=== PATIENT | female | born 1960 | race African-American/Black ===

== ENCOUNTER 2017-06-10 14:12 | Inpatient (IN) | payer MEDICARE ==
[2017-06-10] MEDS ORDERED: ISOVUE-370 76%-LOCM 1 ML ONE (14:16)
--- NOTE | 2017-06-10 14:51 | RAD ---
RADIOGRAPH CHEST 1 VIEW: HISTORY: A 57-year-old female with cough. FINDINGS: The thoracic aorta is tortuous and ectatic. There is no evidence of air space density, pneumothorax, or pulmonary edema. The lateral costophrenic angles are sharp. IMPRESSION: 1) No acute pulmonary findings. 2) Ectasia of thoracic aorta. jn [] POS: C
--- NOTE | 2017-06-10 15:12 | CT ---
BRAIN CT WITHOUT IV CONTRAST: HISTORY: A 57-year-old female with left-sided arm and leg weakness and tingling which began approximately 2-1/ 2 hours ago. COMPARISON: 02/22/15. FINDINGS: Mild atrophy and chronic white matter ischemic changes. Tiny punctate lacunar infarct focus in the r ight caudate. No mass or acute hemorrhage. No CT evidence for significant acute infarct. The patient gives a history of being allergic to contrast media, so she will receive the short prep a nd have a CTA head with perfusion after the premedication. IMPRESSION: No mass or bleed or other acute process. Tiny old right caudate nucleus lacunar infarct. I discussed with Dr. Wyatt at 3:05 p.m. CODE CR POS: NOHELIA
[2017-06-10] MEDS ORDERED: diphenhydrAMINE 50 MG/ML VIAL ONE (15:44)
[2017-06-10] MEDS ORDERED: Famotidine/PF 20 mg/2ml Vial ONE (15:44)
[2017-06-10] MEDS ORDERED: methylPREDNISolone Sod Succ/PF 125 MG/2 ML VIAL ONE (15:44)
[2017-06-10] MEDS ORDERED: Water For Inject, Bacteriostat 30 ML ONE (15:45)
[2017-06-10 15:50] LABS: Hemoglobin 11.7 g/dL (12.0-16.0); Mean Corpuscular HGB CONC 33.2 g/dL (32.0-36.0); Mean Corpuscular Volume 87.4 fl (81.0-99.0); Mean Platelet Volume 7.7 fL (7.4-10.4); Platelet Count 178 thou/uL (130-400); RBC Distribution Width 12.8 % (11.5-14.5); Red Blood Cell (RBC) Count 4.02 mill/uL (4.20-5.40); White Blood Cell (WBC) Count 8.2 thou/uL (4.8-10.8)
[2017-06-10 15:54] LABS: INR-International Normal Ratio 1.1; Prothrombin Time 14.2 SEC (12.0-14.7)
[2017-06-10 16:10] LABS: ALT (SGPT) 8 U/L (8-55); AST (SGOT) 13 U/L (5-34); Albumin 3.7 g/dL (3.5-5.0); Alkaline Phosphatase 61 U/L (40-150); Anion Gap 13 mmol/L (10-20); BUN (Urea Nitrogen) 27 mg/dL (9.8-20.1); Band 6 % (5-11); Bilirubin, Total 0.3 mg/dL (0.2-1.2); Calc. Creatinine Clearance 0 mL/min (70-130); Calcium 8.9 mg/dL (7.8-10.44); Carbon Dioxide 27 mmol/L (22-29); Chloride 100 mmol/L (98-107); Eosinophils 1 % (0-10); Estimated GFR-MDRD 22; Globulin 3.6 g/dL (2.4-3.5); Glucose 100 mg/dL (70-105); Large Platelets SLIGHT; Lymphocytes 32 % (21-51); MDiff Complete? YES; Monocytes 14 % (0-10); Neutrophil 43 % (42-75); Ovalocytes SLIGHT = 2-5 cells (100X) (0-1/hpf); PLT Morphology Comment Appears Adequate; Polychromasia SLIGHT = 2-3 cells (100X) (0-2/hpf); Potassium 3.9 mmol/L (3.5-5.1); Protein, Total 7.3 g/dL (6.0-8.3); Reactive Lymphocytes 3 % (0-10); Sodium 136 mmol/L (136-145)
[2017-06-10 16:14] LABS: CKMB 0.7 ng/mL (0-6.6); Troponin I 0.014 ng/mL (< 0.028)
--- NOTE | 2017-06-10 17:36 | CT ---
CTA OF THE HEAD CTA OF THE NECK CT PERFUSION EVALUATION WITH IV CONTRAST 06/10/17 TECHNIQUE: Multiple CTA images were obtained in the head and neck utilizing IV contrast with 3D reformatted imag ing. CT perfusion study was also performed of the brain. Comparisons are made with noncontrast CT of the brain performed on 06/10/17 at 3 p.m. FINDINGS: CT PERFUSION STUDY: The mean transit time is within normal limits and symmetric. The blood flow and b lood volume is symmetric. CTA examination demonstrates no hemodynamically significant stenosis, occlusion or aneurysmal formati on involving the right internal carotid artery. There is some moderate atherosclerotic irregularity suggested at the region of the left petrous segme nt of the ICA. The remaining course appears patent. The MCAs, ACAs, and washer machine appear patent. The basilar artery and vertebral arteries appear patent throu ghout their course. There is a 9 mm hypodensity in the superior pole of the left thyroid gland. No pathologically enlarged lymph nodes are evident within the neck. There is shotty appearing lymph n odes within the upper neck. Small suspected lymph node is seen within both parotid glands. The visual ized aerodigestive tract appears within normal limits. There are calcified lymph nodes within the le ft hilar region. Patchy areas of subsegmental atelectasis seen within both upper lobes. No definite acute osseous abnormality is evident. Mild mucosal thickening within the ethmoid air cell s and maxillary sinuses. IMPRESSION: 1. Negative CT perfusion evaluation. Findings are called to Dr. Wyatt at 4:45 p.m. on 06/10/17. 2. Moderate atherosclerotic irregularity involving the petrous segment of the left internal venegas tid artery. No additional hemodynamically significant stenosis, occlusion or aneurysmal formation dem onstrated. 3. Mild paranasal sinus disease. 4. Left thyroid hypodensity. This is 9 mm in size and at this patient's age, no thyroid followup is recommended as it measures less than 1.5 cm. 5. Nonspecific subsegmental volume loss within both upper lobes. Code CR POS: NOHELIA
[2017-06-10 18:03] LABS: Bilirubin Negative (Negative); Blood, Urine Negative (Negative); Clarity CLEAR (Clear); Glucose, Urine (Dipstick) Negative (Negative); Leukocyte Negative (Negative); Nitrite Negative (Negative); Protein, Urine (Dipstick) Negative (Neg-Trace); Specific Gravity, Urine 1.021 (1.002-1.036); Urobilinogen 0.2 mg/dL (0.2-1.0)
[2017-06-10] MEDS ORDERED: Oseltamivir 75 MG CAP PO SCH (18:45)
[2017-06-10] MEDS ORDERED: Oseltamivir 6 MG/ML ORAL SUSP PO SCH (21:30)
[2017-06-10] MEDS ORDERED: Nitroglycerin 0.4 MG TAB (25 Tab Bottle) PO PRN (21:31)
[2017-06-10] MEDS ORDERED: Ondansetron ODT 4 MG TAB PO PRN (21:32)
[2017-06-10] MEDS ORDERED: Ondansetron HCl/PF 4 MG/2 ML Vial IVP PRN (21:32)
[2017-06-10] MEDS ORDERED: Bisacodyl 10 MG SUPP PR PRN (21:32)
[2017-06-10] MEDS ORDERED: Senokot 8.6 MG TAB PO PRN (21:32)
[2017-06-10] MEDS ORDERED: Dextrose 50% Abboject 50 ML SYRINGE SLOW IVP PRN (21:37)
[2017-06-10] MEDS ORDERED: Dextrose 5% in Water 1,000 ML IV PRN (21:37)
[2017-06-10] MEDS ORDERED: hydrALAZINE 20 MG/ML VIAL SLOW IVP PRN (21:37)
[2017-06-10] MEDS ORDERED: Labetalol HCl 100 MG/20 ML VIAL SLOW IVP PRN (21:37)
[2017-06-10] MEDS ORDERED: Cyclobenzaprine 10 MG TAB PO PRN (21:37)
[2017-06-10] MEDS ORDERED: cloNIDine 0.1 MG TAB PO PRN (21:40)
[2017-06-10] MEDS ORDERED: Sodium Chloride 0.9% 500 ML IV SCH (21:45)
[2017-06-10 22:07] VITALS: BMI 28.5
[2017-06-10 22:19] LABS: Troponin I 0.015 ng/mL (< 0.028)
[2017-06-10] MEDS: Sodium Chloride 0.9% 1,000 ML IV SCH (22:21)
[2017-06-10] MEDS: Acetaminophen 325 MG TAB PO PRN (22:30)
--- NOTE | 2017-06-10 22:42 | HP ---
PRIMARY CARE PHYSICIAN: [facility]. CHIEF COMPLAINT: Stroke-like symptoms. HISTORY OF PRESENT ILLNESS: Patient is a 57-year-old female with diabetes mellitus type 2, hypertens ion, dyslipidemia, and CVA in the past without residual deficit, presented to the emergency room from [facility] with above complaints. Her blood pressure at [facility] was 50s. She w as found to have left-sided weakness. Over the last 3-4 days, patient has flu-like symptoms. She felt generally weak and fatigued. She al so lost her appetite. She continued taking all of her blood pressure medications including lisinopri l, hydrochlorothiazide, clonidine. She takes aspirin 325 mg daily for stroke prophylaxis. This morn ing, she felt lightheaded, dizzy with inability to do move her left side. She was seen at [facility] and was referred to the emergency room. No double vision, blurring of vision, facial symme try or swallowing difficulty reported. She had some headache that has more or less resolved. No sei zure, chest pain, palpitations or syncope reported. In the emergency room, her initial vital signs showed blood pressure of 75/58 with pulse rate 75, res pirations 16, O2 saturation of 98% on room air. Her temperature was 97.8. Influenza testing was pos itive. CT scan of the brain was negative for acute CVA. CT angiogram of the head and neck showed mo derate arthrosclerotic irregularity involving the petrous segment of the left internal carotid artery . She received 3 liters IV fluid bolus along with Benadryl, Pepcid and Solu-Medrol due to IODINE all ergy. Patient tested positive for influenza B. PAST MEDICAL HISTORY: 1. Diabetes mellitus type 2. 2. Hypertension. 3. Hyperlipidemia. 4. History of cerebrovascular accident without significant residual deficit. 5. Depression and anxiety. PAST SURGICAL HISTORY: 1. Appendectomy. 2. Tubal ligation. ALLERGIES: Patient is allergic to IODINE, LATEX, MORPHINE, PENICILLIN, and SULFA. HOME MEDICATIONS: Patient does not remember all of her home medications. She is able to name some o f them that include carvedilol, clonidine, lisinopril, hydrochlorothiazide, metformin, and aspirin. SOCIAL HISTORY: Patient currently lives at home with her family. She is independent of activities o f daily living. No tobacco, alcohol or drug use reported. FAMILY HISTORY: Positive for diabetes and hypertension. Father had massive IA in 40s. Colon cancer and breast cancer runs in her family. REVIEW OF SYSTEMS: The following complete review of systems was negative, unless otherwise mentioned in the HPI or below: Constitutional: Weight loss or gain, ability to conduct usual activities. Sk in: Rash, itching. Eyes: Double vision, pain. ENT/Mouth: Nose bleeding, neck stiffness, pain, te nderness. Cardiovascular: Palpitations, dyspnea on exertion, orthopnea. Respiratory: Shortness of breath, wheezing, cough, hemoptysis, fever or night sweats. Gastrointestinal: Poor appetite, abdom inal pain, heartburn, nausea, vomiting, constipation, or diarrhea. Genitourinary: Urgency, frequenc y, dysuria, nocturia. Musculoskeletal: Pain, swelling. Neurologic/Psychiatric: Anxiety, depressio n. Allergy/Immunologic: Skin rash, bleeding tendency. PHYSICAL EXAMINATION: VITAL SIGNS: As discussed above. After IV fluid bolus, blood pressure improved to systolic 130s. HEENT: Head atraumatic, normocephalic. Sclerae anicteric. Dry mucous membrane, no oral lesion. NECK: Supple, no JVD appreciated. No carotid bruit. LUNGS: Essentially clear to auscultation bilaterally. No wheezing, rales or rhonchi. ABDOMEN: Soft, nontender, bowel sounds present. No rebound or guarding. HEART: S1, S2 present. Regular rate and rhythm. No rubs, gallops or significant murmur appreciated . EXTREMITIES: No edema or calf tenderness. NEUROLOGIC: Cranial nerves II-XII were normal on examination. Left side had power of 3-4/5 in both upper and lower extremity. Sensation to touch was diminished in both upper and lower extremity on th e left. Gait was not assessed. Reflexes were equivocal. NEUROLOGIC: Patient is alert, awake, oriented x3. Flat affect. SKIN: Warm and dry. LYMPH NODES: No palpable lymph nodes in the neck. PERIPHERAL VASCULAR: Radial pulses palpable bilaterally. MUSCULOSKELETAL: No joint swelling or tenderness. LABORATORY FINDINGS: CBC showed WBC 8.2 with hemoglobin 11.7. PT and INR in normal range. Chemistr ies showed BUN of 27, creatinine of 2.67. Her creatinine last admission was 1.01. Troponins were ne gative. Lactic acid was negative. Urinalysis was negative. IMAGING: Chest x-ray by my review was negative for infiltrate. EKG by my review showed sinus rhythm without significant ST-T wave changes. CT angiogram of the brain as discussed above. IMPRESSION: 1. Suspected right middle cerebral artery distribution cerebrovascular accident causing left-sided w eakness. 2. Acute influenza B infection. 3. Hypotension, responded to IV fluid. 4. Acute kidney injury on chronic kidney disease stage 2, multifactorial. 5. Left internal carotid artery, moderate stenosis involving the petrous segment. 6. A 9-mm left thyroid hypodensity. Primary care physician advised to follow. 7. Diabetes mellitus type 2. 8. History of cerebrovascular accident in the past without residual deficit. 9. Dyslipidemia. 10. Anxiety, depression without any suicidal ideation. 11. History of hypertension. 12. Chronic anemia. PLAN: The patient will be monitored in the stroke unit. We will give her IV fluid at 200 an hour pe riod. We will give her additional half a liter bolus. Continue aspirin. We will get stroke workup including MRA of the brain and echocardiogram. We will consult Neurology. We will get a stat tropon in. Insulin sliding scale. Physical therapy, occupational therapy. Statins. We will hold lisinopril/hydrochlorothiazide. We will continue permissive hypertension hamida ght. We will gradually start her medications probably tomorrow. Plan of care was discussed with the patient and the family at the bedside. They stated understanding . Fall precautions. Tamiflu will be started. Side effects of Tamiflu discussed. Patient stated understanding.
[2017-06-11] MEDS: Sodium Chloride 0.9% 1,000 ML IV SCH ×4 (05:00→21:12)
[2017-06-11] MEDS: Acetaminophen 325 MG TAB PO PRN (05:09)
[2017-06-11 05:30] LABS: #Lymphocytes 1.4 thou/uL (1.20-3.40); #Monocytes 0.3 thou/uL (0.11-0.59); %Basophils 0.1 % (0.0-1.0); %Eosinophils 0.1 % (0.0-10.0); %Lymphocytes 21.3 % (21.0-51.0); %Monocytes 4.1 % (0.0-10.0); %Neutrophils 74.4 % (42.0-75.0); Hemoglobin 11.7 g/dL (12.0-16.0); Mean Corpuscular HGB CONC 32.7 g/dL (32.0-36.0); Mean Corpuscular Hemoglobin 28.7 pg (27.0-31.0); Mean Corpuscular Volume 87.8 fl (81.0-99.0); Mean Platelet Volume 7.8 fL (7.4-10.4); Platelet Count 184 thou/uL (130-400); RBC Distribution Width 12.9 % (11.5-14.5); Red Blood Cell (RBC) Count 4.09 mill/uL (4.20-5.40); White Blood Cell (WBC) Count 6.7 thou/uL (4.8-10.8)
[2017-06-11 05:54] LABS: ALT (SGPT) 9 U/L (8-55); AST (SGOT) 11 U/L (5-34); Albumin 3.8 g/dL (3.5-5.0); Alkaline Phosphatase 63 U/L (40-150); Anion Gap 12 mmol/L (10-20); BUN (Urea Nitrogen) 26 mg/dL (9.8-20.1); Bilirubin, Total 0.2 mg/dL (0.2-1.2); Calc. Creatinine Clearance 53 mL/min (70-130); Calcium 8.4 mg/dL (7.8-10.44); Carbon Dioxide 25 mmol/L (22-29); Cardiac Risk 2.9 (Less than 4.5); Chloride 106 mmol/L (98-107); Cholesterol 151 mg/dl (< 200 Desired); Estimated GFR-MDRD 39; Globulin 3.6 g/dL (2.4-3.5); Glucose 164 mg/dL (70-105); HDL Cholesterol 52 mg/dL (>60 Neg Risk); LDL Cholesterol, Calculated 88 mg/dL; Magnesium 2.1 mg/dL (1.6-2.6); Protein, Total 7.4 g/dL (6.0-8.3); Sodium 139 mmol/L (136-145); Triglycerides 54 mg/dL (Less than 150)
[2017-06-11] MEDS: Insulin Regular 300 UNITS/3 ML VIAL SC PRN ×3 (06:20→17:22)
[2017-06-11] MEDS: Docusate 100 MG CAP PO SCH ×2 (08:54→21:15)
[2017-06-11] MEDS: Famotidine 20 MG TAB PO SCH (08:56)
[2017-06-11] MEDS: Aspirin 325 MG TAB PO SCH (08:56)
[2017-06-11] MEDS: guaiFENesin ER 600 MG TAB PO SCH ×2 (08:56→21:14)
[2017-06-11] MEDS ORDERED: Oseltamivir 6 MG/ML ORAL SUSP PO SCH ×2 (09:00→21:00)
--- NOTE | 2017-06-11 11:56 | MRI ---
MRI BRAIN WITHOUT CONTRAST: Date: 06/11/17 HISTORY: Stroke. Left side weakness. COMPARISON: CT brain from prior day. Perfusion from prior day. MRI brain dated 02/22/15. FINDINGS: Exam is limited due to motion artifact. On the diffusion-weighted imaging sequences, there is no abno rmal area of diffusion restriction to suggest an acute infarction. This is confirmed on the ADC map. There is mild subcortical and deep white matter microvascular ischemic changes. On the susceptibility weighted imaging sequence, no abnormal areas of hemorrhage. There is mild atrophy. Orbits unremarkable. The flow-voids and cap[place] of [place] are maintained. Cerebellar tonsils terminate above the foramen ma gnum. Marrow signal of clivus is normal. IMPRESSION: 1. No acute hemorrhage. 2. Mild to moderate microvascular ischemic changes. POS: NOHELIA
--- NOTE | 2017-06-11 12:32 | CON ---
DATE OF CONSULTATION: 06/11/2017 CONSULTING PHYSICIAN: Hospitalist Service. IMPRESSION: 1. Questionable stroke with subjective left-sided weakness. 2. Hypertension. 3. Diabetes. 4. Hyperlipidemia. 5. Possible flu. PLAN: 1. Continue current medications. 2. Consider adding Plavix if there is confirmation of an ischemic event. 3. Carotid ultrasound. 4. Echocardiogram. HISTORY OF PRESENT ILLNESS: Mr. Seals is a 57-year-old black female with a reported history of mul tiple medical problems. She came in with complaints of left-sided weakness involving the arm and leg . She also reports some headache and mild blurred vision and dizziness. The symptoms supposedly hav e improved, although she says she is not back to her baseline. Initial CT scan of the brain and CTA were both unremarkable other than some narrowing of the petrous segment of the left internal carotid artery. LABORATORY STUDIES: Showed some anemia with hemoglobin of 11.7. Her BUN was 27, creatinine was 2.67 . Urine was clear. PAST MEDICAL HISTORY: As listed above. ALLERGIES: IODINE, MORPHINE, PENICILLIN, SULFA. SOCIAL HISTORY: Unremarkable. FAMILY HISTORY: Noncontributory. MEDICATIONS: List was reviewed. REVIEW OF SYSTEMS: Otherwise, unremarkable from a neurologic perspective. PHYSICAL EXAMINATION: VITAL SIGNS: Blood pressure 146/86, pulse 72, respirations 20, temperature 97.4. HEENT: Pupils equal and reactive. Conjunctivae clear. Oropharynx clear. NECK: No lymphadenopathy. EXTREMITIES: No cyanosis. NEUROLOGIC: She is alert and cooperative. Her speech is fluent and clear. Cranial nerve exam was u nremarkable for any facial droop. Motor exam showed some subjective left-sided weakness, but she was able to walk to the bathroom independently with holding onto the IV pole. Sensation was intact to t ouch. Plantar responses were equivocal. No abnormal movements were seen. SUMMARY: This is a middle-aged woman with subjective complaints of left-sided weakness. Her exam is a bit ambiguous, was determined to see how her imaging turns out and decide whether anything needs t o be done.
[2017-06-11] MEDS ORDERED: cloNIDine 0.1 MG TAB PO PRN (13:24)
[2017-06-11] MEDS ORDERED: Labetalol HCl 100 MG/20 ML VIAL SLOW IVP PRN (13:25)
[2017-06-11] MEDS ORDERED: hydrALAZINE 20 MG/ML VIAL SLOW IVP PRN (13:25)
--- NOTE | 2017-06-11 16:48 | PDOC.PN ---
- Subjective Encounter Start Date: 06/11/17 Encounter Start Time: 14:00 Patient seen and examined. Feels better. Left side weakness improving. No overnight events - Objective Resuscitation Status: Resuscitation Status FULL:Full Resuscitation MAR Reviewed: Yes Vital Signs & Weight: Vital Signs (12 hours) Temp Pulse Pulse Pulse Resp BP BP 06/11/17 15:47 97.7 F 73 16 06/11/17 11:50 97.9 F 82 18 06/11/17 11:15 80 76 166/94 H 159/90 H 06/11/17 08:20 97.4 F L 75 18 06/11/17 07:35 97.4 F L 75 18 BP Pulse Ox 06/11/17 15:47 134/79 99 06/11/17 11:50 166/94 H 100 06/11/17 11:15 06/11/17 08:20 96 06/11/17 07:35 140/77 97 I&O: 06/10/17 06/11/17 06/12/17 06:59 06:59 06:59 Intake Total 2607 Output Total 980 Balance 1627 Result Diagrams: 06/11/17 04:48 06/11/17 04:48 Additional Labs: Accuchecks 06/11/17 06/11/17 06/10/17 11:08 05:48 20:38 POC Glucose 158 H 152 H 147 H EKG Reviewed by me: Yes (Tele SR) Phys Exam - Physical Examination Constitutional: NAD Respiratory: no wheezing, no rales, no rhonchi, clear to auscultation bilateral Cardiovascular: RRR, no rub no heaves/pulsations Gastrointestinal: soft, non-tender, no distention, positive bowel sounds Musculoskeletal: no edema Neurological: moves all 4 limbs (left sided weakness approx 4/5 UE/LE) diminished touch sensation on left Psychiatric: normal affect, A&O x 3 Dx/Plan - Plan DVT proph w/lovenox, DVT proph w/SCDs IMPRESSION: 1. Suspected right middle cerebral artery distribution cerebrovascular accident causing left-sided weakness. 2. Acute influenza B infection. on Tamiflu 3. Hypotension, responded to IV fluid. 4. Acute kidney injury on chronic kidney disease stage 2 - improving 5. Left internal carotid artery, moderate stenosis involving the petrous segment. PCP to follow 6. A 9-mm left thyroid hypodensity. PCP to follow 7. Diabetes mellitus type 2. on sliding scale 8. History of cerebrovascular accident in the past without residual deficit. 9. Dyslipidemia. 10. Anxiety, depression 11. History of hypertension. 12. Chronic anemia. PLAN: * Cont Tamiflu * Neuro input appreciated * Cont ASA since MRI is negative per Neuro recom. * Resume Clonidine/Coreg today * Change IVF rate to 150ml/hr * AM labs * Inpt Rehab eval * Await Echo * Cont current meds as below Review of Systems - Review of Systems Respiratory: Cough, Dry. negative: Shortness of Breath, Hemoptysis, SOB with Excertion, Pleuritic Pain, Sputum, Wheezing Cardiovascular: negative: chest pain, palpitations, orthopnea, paroxysmal nocturnal dyspnea, edema, light headedness - Medications/Allergies Allergies/Adverse Reactions: Allergies Allergy/AdvReac Type Severity Reaction Status Date / Time iodine Allergy Verified 06/11/17 02:46 morphine Allergy Verified 06/11/17 02:57 Penicillins Allergy Verified 06/11/17 02:57 Sulfa (Sulfonamide Allergy Nausea Verified 06/11/17 02:57 Antibiotics) Medications: Current Medications Acetaminophen (Tylenol) 650 mg PO Q4H PRN PRN Reason: Headache/Fever or Pain Last Admin: 06/11/17 05:09 Dose: 650 mg Aspirin (Aspirin) 325 mg PO DAILY [facility] Last Admin: 06/11/17 08:56 Dose: 325 mg Atorvastatin Calcium (Lipitor) 10 mg PO HS [facility] Bisacodyl (Dulcolax) 10 mg [place] Q24H PRN PRN Reason: Constipation Clonidine (Catapres) 0.1 mg PO Q4H PRN PRN Reason: SBP Greater Than 180 Clonidine (Catapres) 0.1 mg PO BID [facility] Cyclobenzaprine HCl (Flexeril) 5 mg PO TIDPRN PRN PRN Reason: Muscle Spasm Dextrose/Water (Dextrose 50%) 25 gm SLOW IVP PRN PRN PRN Reason: Hypoglycemia Docusate Sodium (Colace) 100 mg PO BID [facility] Last Admin: 06/11/17 08:54 Dose: 100 mg Enoxaparin Sodium (Lovenox) 30 mg SC 2100 [facility] Famotidine (Pepcid) 20 mg PO DAILY [facility] Last Admin: 06/11/17 08:56 Dose: 20 mg Glucagon (Glucagon) 1 mg IM PRN PRN PRN Reason: Hypoglycemia Guaifenesin (Mucinex) 600 mg PO Q12HR [facility] Last Admin: 06/11/17 08:56 Dose: 600 mg Hydralazine HCl (Apresoline) 10 mg SLOW IVP Q4H PRN PRN Reason: SBP Greater Than 180 Dextrose/Water (D5w) 1,000 mls @ 0 mls/hr IV .Q0M PRN; As Directed PRN Reason: Hypoglycemia Sodium Chloride (Normal Saline 0.9%) 1,000 mls @ 150 mls/hr IV .Q6H40M [facility] Last Admin: 06/11/17 14:19 Dose: Not Given Influenza Virus Vaccine (Fluzone Quad [id number] Syringe) 0.5 ml IM .ONCE ONE Stop: 06/12/17 09:01 Insulin Human Regular (Humulin R) 0 units SC .MILD SLIDING SCALE PRN PRN Reason: Mild Correctional Scale Last Admin: 06/11/17 11:40 Dose: 2 unit Labetalol HCl (Normodyne) 10 mg SLOW IVP Q4H PRN PRN Reason: Systolic BP > 180 Lactulose (Lactulose) 20 gm PO DAILYPRN PRN PRN Reason: Constipation Miscellaneous Medication (Pharmacy To Dose) 0 each IVPB PRN PRN PRN Reason: RENAL Pharmacy to dose Nitroglycerin (Nitrostat) 0.4 mg PO Q5MIN PRN PRN Reason: Chest Pain Ondansetron HCl (Zofran Odt) 4 mg PO Q6H PRN PRN Reason: Nausea/Vomiting Ondansetron HCl (Zofran) 4 mg IVP Q6H PRN PRN Reason: Nausea/Vomiting Oseltamivir Phosphate (Tamiflu) 30 mg PO [facility] Senna (Senokot) 2 tab PO HSPRN PRN PRN Reason: Constipation Sodium Chloride (Flush - Normal Saline) 10 ml IVF PRN PRN PRN Reason: Saline Flush
[2017-06-11] MEDS ORDERED: Atorvastatin Calcium 10 MG TAB PO SCH (21:00)
[2017-06-11] MEDS ORDERED: Enoxaparin Sodium 40 MG/0.4 ML SYRINGE SC SCH (21:00)
[2017-06-11] MEDS ORDERED: Enoxaparin Sodium 30 MG/0.3 ML SYRINGE SC SCH (21:00)
[2017-06-11] MEDS: cloNIDine 0.1 MG TAB PO SCH (21:13)
[2017-06-11] MEDS: Carvedilol 6.25 MG TAB PO SCH (21:14)
[2017-06-12] MEDS: Sodium Chloride 0.9% 1,000 ML IV SCH (04:05)
[2017-06-12] MEDS: Acetaminophen 325 MG TAB PO PRN (04:08)
[2017-06-12] MEDS ORDERED: Levothyroxine Sodium 25 MCG TAB PO SCH (06:00)
[2017-06-12] MEDS: Docusate 100 MG CAP PO SCH (08:27)
[2017-06-12] MEDS: guaiFENesin ER 600 MG TAB PO SCH (08:28)
[2017-06-12] MEDS: Aspirin 325 MG TAB PO SCH (08:28)
[2017-06-12] MEDS: Carvedilol 6.25 MG TAB PO SCH (08:28)
[2017-06-12] MEDS: Famotidine 20 MG TAB PO SCH (08:28)
[2017-06-12] MEDS: cloNIDine 0.1 MG TAB PO SCH (08:29)
[2017-06-12] MEDS ORDERED: FLU VACC QS2017-18 36 mo. & older 0.5 ML SYRINGE IM ONE (09:00)
[2017-06-12] MEDS ORDERED: Amitriptyline HCl 25 MG TAB PO SCH (09:00)
--- NOTE | 2017-06-12 11:53 | PDOC.PN ---
- Subjective Encounter Start Date: 06/12/17 Encounter Start Time: 11:51 Ms. Seals was seen today in follow-up. She says that the weakness on her left side has improved. She tells me she had been taking a full dose aspirin when this happened. - Objective Resuscitation Status: Resuscitation Status FULL:Full Resuscitation MAR Reviewed: Yes Vital Signs & Weight: Vital Signs (12 hours) Temp Pulse Resp BP BP BP BP 06/12/17 08:29 144/82 H 06/12/17 08:28 144/82 H 06/12/17 08:25 76 126/75 06/12/17 08:23 70 146/87 H 144/86 H 06/12/17 08:01 97.8 F 76 16 06/12/17 08:00 97.8 F 66 16 139/88 06/12/17 04:00 98.0 F 80 16 154/78 H 06/12/17 03:57 06/12/17 00:00 97.8 F 83 14 BP Pulse Ox 06/12/17 08:29 06/12/17 08:28 06/12/17 08:25 06/12/17 08:23 06/12/17 08:01 06/12/17 08:00 100 06/12/17 04:00 99 06/12/17 03:57 98 06/12/17 00:00 124/67 98 I&O: 06/11/17 06/12/17 06/13/17 06:59 06:59 06:59 Intake Total 2607 6288 240 Output Total 980 Balance 1627 6288 240 Result Diagrams: 06/11/17 04:48 06/11/17 04:48 Additional Labs: Accuchecks 06/12/17 06/12/17 06/11/17 10:58 04:45 21:08 POC Glucose 137 H 124 H 142 H 06/11/17 17:00 POC Glucose 241 H Phys Exam - Physical Examination HEENT: PERRLA Respiratory: no wheezing, no rales, no rhonchi, clear to auscultation bilateral Cardiovascular: RRR, no significant murmur Gastrointestinal: soft, non-tender, positive bowel sounds Musculoskeletal: no edema Dx/Plan (1) Transient ischemic attack Status: Acute (2) Diabetes Code(s): E11.9 - TYPE 2 DIABETES MELLITUS WITHOUT COMPLICATIONS Status: Chronic (3) Dyslipidemia Code(s): E78.5 - HYPERLIPIDEMIA, UNSPECIFIED Status: Chronic (4) Hypertension Code(s): I10 - ESSENTIAL (PRIMARY) HYPERTENSION Status: Chronic - Plan * Left sided weakness- this has improved, and MRI was negative for stroke * Will change aspirin to Aggrenox * Influenza B- continue Tamiflu * Dyslipidemia- will continue Lipitor * She is stable for discharge home.
[2017-06-12 12:24] VITALS: BP 133/81; TEMP 98.4
--- NOTE | 2017-06-12 16:59 | DIS ---
DATE OF ADMISSION: 06/10/2017 DATE OF DISCHARGE: 06/12/2017 PRIMARY CARE PHYSICIAN: Arron Paula. DISCHARGE DISPOSITION: Home. PRIMARY DISCHARGE DIAGNOSES: 1. Transient ischemic attack. 2. Hypertension. 3. Influenza B. 4. Diabetes mellitus, type 2. 5. Dyslipidemia. DISCHARGE MEDICATIONS: Include Aggrenox 1 tablet twice daily, Tamiflu 45 mg p.o. daily and this is d ose for renal insufficiency. Lipitor 10 mg at bedtime, amlodipine 5 mg daily, Elavil 25 mg daily, ca rvedilol 12.5 mg twice a day, clonidine 0.1 mg twice a day, Flexeril 10 mg t.i.d. as needed, lisinopr il/hydrochlorothiazide 20/12.5 one tablet twice a day, metformin 500 mg twice a day. The patient hill l be changed from metformin to Januvia due to renal insufficiency to Januvia 25 mg at bedtime. HOSPITAL COURSE: Ms. Seals is a pleasant 57-year-old female who presented to the emergency room wi th left-sided weakness. She also had a loss of appetite and poor oral intake. She was also found to have influenza B and she was also noted to have acute renal failure. She was admitted for transient ischemic or stroke-like symptoms which were determined to be a transient ischemic attack. Her sympt oms have completely resolved by the time of discharge and an MRI of the brain was negative for any ac belkofski stroke. She also had a CTA of the brain which showed some moderate stenosis, but nothing of clin ical significance and she also had an echocardiogram demonstrating an ejection fraction of 55%-60%. Since her symptoms resolved, this will be called TIA. She states that she had been on aspirin therap y prior to this happening. Therefore, we will change her from aspirin to Aggrenox. She was also not ed to have an acute renal failure, likely as a result of poor oral intake in addition to being on lis inopril and hydrochlorothiazide. The lisinopril was held during the course of her admission and she was given IV fluid resuscitation. Her creatinine at the time of discharge was 1.6, which is close to her baseline. Her GFR was still under 40 and for this reason, we will be taking her off of metformi n and placing her on Januvia instead and this can be further evaluated by her primary care physician. She also had an LDL of 88. She had been on pravastatin, but this will be changed to Lipitor. Her blood pressure was well controlled during her hospital stay and she will be subsequently discharged h ome.
--- NOTE | 2017-06-13 10:55 | CT ---
CTA OF THE HEAD CTA OF THE NECK CT PERFUSION EVALUATION WITH IV CONTRAST 06/10/17 TECHNIQUE: Multiple CTA images were obtained in the head and neck utilizing IV contrast with 3D reformatted imag ing. CT perfusion study was also performed of the brain. Comparisons are made with noncontrast CT of the brain performed on 06/10/17 at 3 p.m. FINDINGS: CT PERFUSION STUDY: The mean transit time is within normal limits and symmetric. The blood flow and b lood volume is symmetric. CTA examination demonstrates no hemodynamically significant stenosis, occlusion or aneurysmal formati on involving the right internal carotid artery. There is some moderate atherosclerotic irregularity suggested at the region of the left petrous segme nt of the ICA. The remaining course appears patent. The MCAs, ACAs, and dining car steward appear patent. The basilar artery and vertebral arteries appear patent throu ghout their course. There is a 9 mm hypodensity in the superior pole of the left thyroid gland. No pathologically enlarged lymph nodes are evident within the neck. There is shotty appearing lymph n odes within the upper neck. Small suspected lymph node is seen within both parotid glands. The visual ized aerodigestive tract appears within normal limits. There are calcified lymph nodes within the le ft hilar region. Patchy areas of subsegmental atelectasis seen within both upper lobes. No definite acute osseous abnormality is evident. Mild mucosal thickening within the ethmoid air cell s and maxillary sinuses. IMPRESSION: 1. Negative CT perfusion evaluation. Findings are called to Dr. Wyatt at 4:45 p.m. on 06/10/17. 2. Moderate atherosclerotic irregularity involving the petrous segment of the left internal venegas tid artery. No additional hemodynamically significant stenosis, occlusion or aneurysmal formation dem onstrated. 3.Mild paranasal sinus disease. 4. Left thyroid hypodensity. This is 9 mm in size and at this patient's age, no thyroid followup is recommended as it measures less than 1.5 cm. 5.Nonspecific subsegmental volume loss within both upper lobes. Code CR
== END 2017-06-12 13:49 | disposition home or self-care (01) | DRG 69 ==
LOC: ERS 14:12 → 2SE 19:45
PROVIDERS: ADMIT Internal Medicine; ATTEND Internal Medicine
DX: G45.9 Transient cerebral ischemic attack, unspecified (principal); N17.9 Acute kidney failure, unspecified; I95.9 Hypotension, unspecified; E11.22 Type 2 diabetes mellitus with diabetic chronic kidney disease; D64.9 Anemia, unspecified; J11.1 Influenza due to unidentified influenza virus with other respiratory manifestations; E78.5 Hyperlipidemia, unspecified; T46.4X5A Adverse effect of angiotensin-converting-enzyme inhibitors, initial encounter; T50.2X5A Adverse effect of carbonic-anhydrase inhibitors, benzothiadiazides and other diuretics, initial encounter; Z86.73 Personal history of transient ischemic attack (TIA), and cerebral infarction without residual deficits; I12.9 Hypertensive chronic kidney disease with stage 1 through stage 4 chronic kidney disease, or unspecified chronic kidney disease; N18.2 Chronic kidney disease, stage 2 (mild); F41.9 Anxiety disorder, unspecified; F32.9 Major depressive disorder, single episode, unspecified
CPT/HCPCS: 0042T; 36415; 36416; 70450; 70496; 70498; 70551; 71045; 80053; 80061; 81003; 82553; 83605; 83735; 84484; 85025; 85610; 87040; 87086; 87804; 93005; 93306; 94760; 96361; 96374; 96375; G8978-GP-CL; G8979-GP-CI; J1200; J1650; J1815; J2930; S0028

== ENCOUNTER 2017-09-02 07:32 | Outpatient (CLI) | payer MEDICARE | END 2017-09-02 07:33 | disposition home or self-care (01) | LOC: BICULT 07:32 | PROVIDERS: ATTEND Internal Medicine Nephrology | DX: I12.9 Hypertensive chronic kidney disease with stage 1 through stage 4 chronic kidney disease, or unspecified chronic kidney disease (principal); N18.3 Chronic kidney disease, stage 3 (moderate) | CPT/HCPCS: 76770 ==

== ENCOUNTER 2018-01-10 15:18 | Outpatient (CLI) | payer MEDICARE | END 2018-01-10 15:19 | disposition home or self-care (01) | LOC: BICMAMMO 15:18 | PROVIDERS: ATTEND Family Medicine | DX: Z12.31 Encounter for screening mammogram for malignant neoplasm of breast (principal); Z80.3 Family history of malignant neoplasm of breast | CPT/HCPCS: 77063; 77067 ==

== ENCOUNTER 2023-01-10 19:08 | Inpatient (IN) | payer MEDICARE ==
[2023-01-10 19:54] LABS: #Monocytes 0.1 thou/uL (0.11-0.59); #Neutrophils 8.8 thou/uL (1.40-6.50); %Basophils 0.3 % (0.0-1.0); %Eosinophils 0.1 % (0.0-10.0); %Lymphocytes 12.2 % (21.0-51.0); %Monocytes 1.3 % (0.0-10.0); %Neutrophils 85.8 % (42.0-75.0); Hematocrit 43.5 % (36.0-47.0); Hemoglobin 14.4 g/dL (12.0-16.0); Mean Corpuscular HGB CONC 33.1 g/dL (32.0-36.0); Mean Corpuscular Hemoglobin 28.2 pg (27.0-31.0); Mean Corpuscular Volume 85.3 fl (78.0-98.0); Mean Platelet Volume 9.4 fL (7.4-10.4); Platelet Count 228 10x3/uL (130-400); RBC Distribution Width 14.6 % (11.5-14.5); White Blood Cell (WBC) Count 10.2 10x3/uL (4.8-10.8)
[2023-01-10] MEDS ORDERED: Ondansetron PF 4 MG/2 ML Vial ONE (20:11)
[2023-01-10 20:18] LABS: Bacteria/HPF None Seen HPF (None Seen); Bilirubin Negative (Negative); Blood, Urine Negative (Negative); CAUTI Indications for Culture Alt mental st,lethar; Clarity Clear (Clear); Glucose, Urine (Dipstick) 70 mg/dL (Negative); Ketone, Urine Negative (Negative); Leukocyte Negative Leu/uL (Negative); Nitrite Negative (Negative); Protein, Urine (Dipstick) 10 mg/dL (Neg-Trace); RBC/HPF 0-3 HPF (0-3); Specific Gravity, Urine 1.028 (1.002-1.036); Squamous Epithelial None Seen HPF (0-3); Urobilinogen Normal mg/dL (Less than 2); WBC/HPF 0-3 HPF (0-3); pH, Urine 6.5 (5.0-9.0)
[2023-01-10 20:19] LABS: ALT (SGPT) 16 U/L (8-55); AST (SGOT) 15 U/L (5-34); Albumin 4.2 g/dL (3.5-5.0); Alkaline Phosphatase 109 U/L (40-110); Anion Gap 13 mmol/L (10-20); BUN (Urea Nitrogen) 28 mg/dL (9.8-20.1); Bilirubin, Total 0.3 mg/dL (0.2-1.2); CK (CPK) 244 U/L (29-168); Calc. Creatinine Clearance 0 mL/min (70-130); Calcium 9.7 mg/dL (7.8-10.44); Carbon Dioxide 24 mmol/L (22-29); Chloride 101 mmol/L (98-107); Estimated GFR 38; Globulin 3.8 g/dL (2.4-3.5); Glucose 211 mg/dL (70-105); Magnesium 2.2 mg/dL (1.6-2.6); Potassium 4.2 mmol/L (3.5-5.1); Sodium 134 mmol/L (136-145)
[2023-01-10 20:21] LABS: Urine Culture Reflex No No
[2023-01-10] MEDS ORDERED: Ondansetron ODT 4 MG TAB PO PRN (20:24)
[2023-01-10] MEDS ORDERED: Ondansetron PF 4 MG/2 ML Vial IVP PRN (20:24)
[2023-01-10] MEDS ORDERED: Acetaminophen 650 MG Suppository PR PRN (20:24)
[2023-01-10] MEDS ORDERED: hydrALAZINE 20 MG/ML VIAL SLOW IVP PRN (20:24)
[2023-01-10] MEDS ORDERED: levETIRAcetam 500 MG/5 ML VIAL ONE (20:26)
[2023-01-10 20:46] LABS: Troponin I Less than 0.010 ng/mL (< 0.028)
[2023-01-10] MEDS ORDERED: HumaLOG 300 UNITS/3 ML VIAL SC PRN ×2 (22:56)
[2023-01-10] MEDS ORDERED: Dextrose 50% Abboject 50 ML SYRINGE SLOW IVP PRN (22:56)
[2023-01-10] MEDS ORDERED: Glucagon 1 MG/ML KIT IM PRN (22:56)
[2023-01-10] MEDS ORDERED: Dextrose 5% in Water 1,000 ML IV PRN (22:56)
[2023-01-10 22:57] VITALS: BMI 32.2
[2023-01-11] MEDS ORDERED: Lorazepam 2 MG/ML VIAL SLOW IVP PRN (01:04)
[2023-01-11 04:26] LABS: Amphetamine Not Detected (NotDetected); Barbiturates Screen Not Detected (NotDetected); Benzodiazepine Screen Not Detected (NotDetected); Cocaine Metabolite Screen Not Detected (NotDetected); Methadone Not Detected (NotDetected); Methamphetamine Not Detected (NotDetected); Opiate Screen Not Detected (NotDetected); Oxycodone Screen Not Detected (NotDetected); Phencyclidine (PCP) Not Detected (NotDetected); THC/Cannabinoid Screen Not Detected (NotDetected); Tricyclic Screen Detected (NotDetected)
[2023-01-11 05:04] LABS: #Monocytes 0.4 thou/uL (0.11-0.59); #Neutrophils 10.3 thou/uL (1.40-6.50); %Basophils 0.1 % (0.0-1.0); %Lymphocytes 12.4 % (21.0-51.0); %Monocytes 3.1 % (0.0-10.0); %Neutrophils 83.9 % (42.0-75.0); Hematocrit 42.7 % (36.0-47.0); Hemoglobin 13.9 g/dL (12.0-16.0); Mean Corpuscular HGB CONC 32.6 g/dL (32.0-36.0); Mean Corpuscular Hemoglobin 28.2 pg (27.0-31.0); Mean Corpuscular Volume 86.6 fl (78.0-98.0); Mean Platelet Volume 9.9 fL (7.4-10.4); Platelet Count 245 10x3/uL (130-400); Red Blood Cell (RBC) Count 4.93 mill/uL (4.20-5.40); White Blood Cell (WBC) Count 12.2 10x3/uL (4.8-10.8)
[2023-01-11 05:31] LABS: Anion Gap 15 mmol/L (10-20); BUN (Urea Nitrogen) 31 mg/dL (9.8-20.1); Calc. Creatinine Clearance 61 mL/min (70-130); Calcium 9.4 mg/dL (7.8-10.44); Carbon Dioxide 22 mmol/L (22-29); Cardiac Risk 2.2 (Less than 4.5); Chloride 104 mmol/L (98-107); Cholesterol 164 mg/dl (< 200 Desired); Estimated GFR 39; Glucose 190 mg/dL (70-105); HDL Cholesterol 73 mg/dL (>60 Neg Risk); LDL Cholesterol, Calculated 81 mg/dL; Potassium 4.8 mmol/L (3.5-5.1); Sodium 136 mmol/L (136-145); Triglycerides 48 mg/dL (Less than 150)
[2023-01-11] MEDS: Aspirin 81 mg Enteric Coated Tablet PO SCH ×3 (08:18→08:52)
[2023-01-11] MEDS ORDERED: Nitroglycerin 2% Ointment 1 INCH/1 GM Packet TOP PRN (11:26)
[2023-01-11] MEDS ORDERED: cloNIDine 0.2mg/24 Hour PATCH TD SCH (12:00)
[2023-01-11 14:21] LABS: Platelet Count 260 thou/uL (130-400)
[2023-01-11 16:23] LABS: EPI 192 sec (67-192)
[2023-01-11] MEDS: Acetaminophen 325 MG TAB PO PRN (16:44)
[2023-01-11] MEDS ORDERED: levETIRAcetam 500 MG TAB PO SCH ×2 (16:45→21:00)
[2023-01-11] MEDS ORDERED: levETIRAcetam 500 MG/5 ML VIAL SLOW IVP SCH (17:45)
[2023-01-11] MEDS ORDERED: Nitroglycerin 2% Ointment 1 INCH/1 GM Packet TOP SCH (21:00)
[2023-01-11] MEDS: levETIRAcetam 500 MG/5 ML VIAL SLOW IVP SCH (21:35)
[2023-01-12 04:28] LABS: #Monocytes 1.2 thou/uL (0.11-0.59); #Neutrophils 11.5 thou/uL (1.40-6.50); %Basophils 0.2 % (0.0-1.0); %Eosinophils 0.1 % (0.0-10.0); %Monocytes 7.2 % (0.0-10.0); %Neutrophils 70.1 % (42.0-75.0); Hematocrit 41.6 % (36.0-47.0); Hemoglobin 13.3 g/dL (12.0-16.0); Mean Corpuscular Hemoglobin 27.7 pg (27.0-31.0); Mean Corpuscular Volume 86.5 fl (78.0-98.0); Mean Platelet Volume 9.8 fL (7.4-10.4); Platelet Count 214 10x3/uL (130-400); RBC Distribution Width 15.2 % (11.5-14.5); Red Blood Cell (RBC) Count 4.81 mill/uL (4.20-5.40); White Blood Cell (WBC) Count 16.3 10x3/uL (4.8-10.8)
[2023-01-12 04:52] LABS: Anion Gap 14 mmol/L (10-20); BUN (Urea Nitrogen) 32 mg/dL (9.8-20.1); Calc. Creatinine Clearance 70 mL/min (70-130); Calcium 9.2 mg/dL (7.8-10.44); Carbon Dioxide 22 mmol/L (22-29); Chloride 105 mmol/L (98-107); Estimated GFR 46; Glucose 110 mg/dL (70-105); Potassium 3.8 mmol/L (3.5-5.1); Sodium 137 mmol/L (136-145)
[2023-01-12] MEDS: Acetaminophen 325 MG TAB PO PRN ×2 (08:47→20:49)
[2023-01-12] MEDS: Aspirin 81 mg Enteric Coated Tablet PO SCH (08:48)
[2023-01-12] MEDS: levETIRAcetam 500 MG/5 ML VIAL SLOW IVP SCH ×2 (08:48→20:32)
[2023-01-12 10:10] LABS: Troponin I Less than 0.010 ng/mL (< 0.028)
[2023-01-12] MEDS: hydrALAZINE 20 MG/ML VIAL SLOW IVP PRN ×2 (12:23→15:58)
[2023-01-12] MEDS ORDERED: Lorazepam 2 MG/ML VIAL SLOW IVP PRN (15:53)
[2023-01-13 05:58] LABS: #Basophils 0.1 thou/uL (0.0-0.2); #Eosinphils 0.1 thou/uL (0.0-0.7); #Neutrophils 6.7 thou/uL (1.40-6.50); %Basophils 0.4 % (0.0-1.0); %Eosinophils 0.9 % (0.0-10.0); %Lymphocytes 33.2 % (21.0-51.0); %Monocytes 8.5 % (0.0-10.0); %Neutrophils 56.7 % (42.0-75.0); Hematocrit 42.1 % (36.0-47.0); Hemoglobin 13.4 g/dL (12.0-16.0); Mean Corpuscular HGB CONC 31.8 g/dL (32.0-36.0); Mean Corpuscular Hemoglobin 28.3 pg (27.0-31.0); Mean Platelet Volume 9.7 fL (7.4-10.4); Platelet Count 209 10x3/uL (130-400); RBC Distribution Width 15.3 % (11.5-14.5); Red Blood Cell (RBC) Count 4.73 mill/uL (4.20-5.40); White Blood Cell (WBC) Count 11.8 10x3/uL (4.8-10.8)
[2023-01-13 06:21] LABS: Anion Gap 15 mmol/L (10-20); BUN (Urea Nitrogen) 30 mg/dL (9.8-20.1); Calc. Creatinine Clearance 70 mL/min (70-130); Calcium 9.3 mg/dL (7.8-10.44); Carbon Dioxide 20 mmol/L (22-29); Chloride 108 mmol/L (98-107); Estimated GFR 48; Glucose 140 mg/dL (70-105); Potassium 3.8 mmol/L (3.5-5.1); Sodium 139 mmol/L (136-145)
[2023-01-13] MEDS: levETIRAcetam 500 MG/5 ML VIAL SLOW IVP SCH ×2 (09:17→20:54)
[2023-01-13] MEDS: Aspirin 81 mg Enteric Coated Tablet PO SCH (09:17)
[2023-01-13 10:25] LABS: Bilirubin Negative (Negative); Blood, Urine Negative (Negative); Clarity Clear (Clear); Glucose, Urine (Dipstick) Normal (Negative); Ketone, Urine Negative (Negative); Leukocyte 250 Leu/uL (Negative); Nitrite Negative (Negative); Protein, Urine (Dipstick) Negative (Neg-Trace); RBC/HPF 0-3 HPF (0-3); Specific Gravity, Urine 1.028 (1.002-1.036); Urobilinogen Normal mg/dL (Less than 2); pH, Urine 6.5 (5.0-9.0)
[2023-01-13 10:29] LABS: Bacteria/HPF 1+ HPF (None Seen)
[2023-01-14 04:53] LABS: #Eosinphils 0.2 thou/uL (0.0-0.7); #Monocytes 0.9 thou/uL (0.11-0.59); #Neutrophils 5.5 thou/uL (1.40-6.50); %Basophils 0.4 % (0.0-1.0); %Lymphocytes 36.9 % (21.0-51.0); %Monocytes 8.5 % (0.0-10.0); %Neutrophils 51.9 % (42.0-75.0); Hematocrit 39.6 % (36.0-47.0); Hemoglobin 12.8 g/dL (12.0-16.0); Mean Corpuscular HGB CONC 32.3 g/dL (32.0-36.0); Mean Corpuscular Hemoglobin 28.2 pg (27.0-31.0); Mean Corpuscular Volume 87.2 fl (78.0-98.0); Mean Platelet Volume 9.7 fL (7.4-10.4); Platelet Count 196 10x3/uL (130-400); Red Blood Cell (RBC) Count 4.54 mill/uL (4.20-5.40); White Blood Cell (WBC) Count 10.5 10x3/uL (4.8-10.8)
[2023-01-14 05:19] LABS: Anion Gap 13 mmol/L (10-20); BUN (Urea Nitrogen) 25 mg/dL (9.8-20.1); Calc. Creatinine Clearance 68 mL/min (70-130); Calcium 8.8 mg/dL (7.8-10.44); Carbon Dioxide 22 mmol/L (22-29); Chloride 107 mmol/L (98-107); Estimated GFR 47; Glucose 119 mg/dL (70-105); Potassium 3.7 mmol/L (3.5-5.1); Sodium 138 mmol/L (136-145)
[2023-01-14] MEDS: Aspirin 81 mg Enteric Coated Tablet PO SCH (08:44)
[2023-01-14] MEDS: Levothyroxine Sodium 25 MCG TAB PO SCH (09:40)
[2023-01-14] MEDS: Polyethylene Glycol 3350 17 GM Packet PO PRN (17:54)
[2023-01-15 05:08] LABS: #Basophils 0.1 thou/uL (0.0-0.2); #Eosinphils 0.3 thou/uL (0.0-0.7); #Neutrophils 6.2 thou/uL (1.40-6.50); %Basophils 0.5 % (0.0-1.0); %Eosinophils 2.4 % (0.0-10.0); %Lymphocytes 34.2 % (21.0-51.0); %Monocytes 8.3 % (0.0-10.0); %Neutrophils 54.3 % (42.0-75.0); Hemoglobin 12.3 g/dL (12.0-16.0); Mean Corpuscular HGB CONC 32.4 g/dL (32.0-36.0); Mean Corpuscular Hemoglobin 28.3 pg (27.0-31.0); Mean Corpuscular Volume 87.6 fl (78.0-98.0); Mean Platelet Volume 9.8 fL (7.4-10.4); Platelet Count 182 10x3/uL (130-400); RBC Distribution Width 14.7 % (11.5-14.5); Red Blood Cell (RBC) Count 4.34 mill/uL (4.20-5.40); White Blood Cell (WBC) Count 11.4 10x3/uL (4.8-10.8)
[2023-01-15 05:32] LABS: Anion Gap 11 mmol/L (10-20); BUN (Urea Nitrogen) 23 mg/dL (9.8-20.1); Calc. Creatinine Clearance 69 mL/min (70-130); Calcium 8.7 mg/dL (7.8-10.44); Carbon Dioxide 22 mmol/L (22-29); Chloride 107 mmol/L (98-107); Estimated GFR 47; Glucose 128 mg/dL (70-105); Potassium 3.8 mmol/L (3.5-5.1); Sodium 136 mmol/L (136-145)
[2023-01-15] MEDS: Aspirin 81 mg Enteric Coated Tablet PO SCH (09:07)
[2023-01-15] MEDS: Clopidogrel Bisulfate 75 MG TAB PO SCH (09:08)
[2023-01-15] MEDS: Lisinopril 20 MG TAB PO SCH (09:08)
[2023-01-15] MEDS: Amitriptyline HCl 25 MG TAB PO SCH ×2 (09:08→20:45)
[2023-01-15] MEDS: Carvedilol 6.25 MG TAB PO SCH ×2 (09:08→20:45)
[2023-01-15] MEDS: Levothyroxine Sodium 25 MCG TAB PO SCH (09:08)
[2023-01-15] MEDS: Amlodipine 10 MG TAB PO SCH (09:25)
[2023-01-15] MEDS: Polyethylene Glycol 3350 17 GM Packet PO PRN (09:25)
[2023-01-15] MEDS: Atorvastatin Calcium 40 MG TAB PO SCH (20:45)
[2023-01-16 05:53] LABS: Anion Gap 13 mmol/L (10-20); BUN (Urea Nitrogen) 21 mg/dL (9.8-20.1); Calc. Creatinine Clearance 70 mL/min (70-130); Carbon Dioxide 22 mmol/L (22-29); Chloride 107 mmol/L (98-107); Estimated GFR 48; Glucose 123 mg/dL (70-105); Potassium 4.2 mmol/L (3.5-5.1); Sodium 138 mmol/L (136-145)
[2023-01-16] MEDS: Carvedilol 6.25 MG TAB PO SCH ×2 (09:47→20:11)
[2023-01-16] MEDS: Aspirin 81 mg Enteric Coated Tablet PO SCH (09:47)
[2023-01-16] MEDS: Amitriptyline HCl 25 MG TAB PO SCH ×2 (09:47→20:10)
[2023-01-16] MEDS: Lisinopril 20 MG TAB PO SCH (09:47)
[2023-01-16] MEDS: Levothyroxine Sodium 25 MCG TAB PO SCH (09:48)
[2023-01-16] MEDS: Clopidogrel Bisulfate 75 MG TAB PO SCH (09:48)
[2023-01-16] MEDS: Amlodipine 10 MG TAB PO SCH (09:48)
[2023-01-16] MEDS: Atorvastatin Calcium 40 MG TAB PO SCH (20:10)
[2023-01-17] MEDS: Acetaminophen 325 MG TAB PO PRN (06:22)
[2023-01-17] MEDS: Amitriptyline HCl 25 MG TAB PO SCH ×2 (08:59→20:54)
[2023-01-17] MEDS: Carvedilol 6.25 MG TAB PO SCH ×2 (08:59→20:55)
[2023-01-17] MEDS: Aspirin 81 mg Enteric Coated Tablet PO SCH (08:59)
[2023-01-17] MEDS: Clopidogrel Bisulfate 75 MG TAB PO SCH (09:00)
[2023-01-17] MEDS: Amlodipine 10 MG TAB PO SCH (09:00)
[2023-01-17] MEDS: Lisinopril 20 MG TAB PO SCH (09:00)
[2023-01-17] MEDS: Levothyroxine Sodium 25 MCG TAB PO SCH (09:00)
[2023-01-17] MEDS: Atorvastatin Calcium 40 MG TAB PO SCH (20:54)
[2023-01-18] MEDS: Amlodipine 10 MG TAB PO SCH (08:50)
[2023-01-18] MEDS: Levothyroxine Sodium 25 MCG TAB PO SCH (08:51)
[2023-01-18] MEDS: Clopidogrel Bisulfate 75 MG TAB PO SCH (08:51)
[2023-01-18] MEDS: Amitriptyline HCl 25 MG TAB PO SCH ×2 (08:51→21:27)
[2023-01-18] MEDS: Lisinopril 20 MG TAB PO SCH (08:51)
[2023-01-18] MEDS: Carvedilol 6.25 MG TAB PO SCH ×2 (08:51→21:28)
[2023-01-18] MEDS: Aspirin 81 mg Enteric Coated Tablet PO SCH (08:52)
[2023-01-18] MEDS: Atorvastatin Calcium 40 MG TAB PO SCH (21:28)
[2023-01-19] MEDS: Polyethylene Glycol 3350 17 GM Packet PO PRN (00:26)
[2023-01-19] MEDS: Amitriptyline HCl 25 MG TAB PO SCH (09:01)
[2023-01-19] MEDS: Clopidogrel Bisulfate 75 MG TAB PO SCH (09:01)
[2023-01-19] MEDS: Lisinopril 20 MG TAB PO SCH (09:01)
[2023-01-19] MEDS: Amlodipine 10 MG TAB PO SCH (09:01)
[2023-01-19] MEDS: Carvedilol 6.25 MG TAB PO SCH (09:01)
[2023-01-19] MEDS: Aspirin 81 mg Enteric Coated Tablet PO SCH (09:01)
[2023-01-19] MEDS: Levothyroxine Sodium 25 MCG TAB PO SCH (09:01)
[2023-01-19 11:57] VITALS: BP 117/72; TEMP 97.4
[2023-01-19] MEDS: Acetaminophen 325 MG TAB PO PRN (12:10)
== END 2023-01-19 18:25 | disposition home health service (06) | DRG 305 ==
LOC: ERS 19:08 → CCU 20:45 → 2SE 01-12 15:33
PROVIDERS: ADMIT Student in an Organized Health Care Education/Training Program; ATTEND Family Medicine
DX: I16.1 Hypertensive emergency (principal); I67.4 Hypertensive encephalopathy; I69.354 Hemiplegia and hemiparesis following cerebral infarction affecting left non-dominant side; E87.1 Hypo-osmolality and hyponatremia; E11.22 Type 2 diabetes mellitus with diabetic chronic kidney disease; G43.909 Migraine, unspecified, not intractable, without status migrainosus; E78.5 Hyperlipidemia, unspecified; I16.0 Hypertensive urgency; I12.9 Hypertensive chronic kidney disease with stage 1 through stage 4 chronic kidney disease, or unspecified chronic kidney disease; J45.909 Unspecified asthma, uncomplicated; N18.9 Chronic kidney disease, unspecified; Z91.030 Bee allergy status; Z91.041 Radiographic dye allergy status; Z88.5 Allergy status to narcotic agent; Z88.0 Allergy status to penicillin; Z88.2 Allergy status to sulfonamides; Z79.899 Other long term (current) drug therapy; Z79.02 Long term (current) use of antithrombotics/antiplatelets; Z79.890 Hormone replacement therapy; Z90.49 Acquired absence of other specified parts of digestive tract; Z98.51 Tubal ligation status; I69.322 Dysarthria following cerebral infarction; I69.392 Facial weakness following cerebral infarction
CPT/HCPCS: 0042T; 36415; 36416; 70450; 70496; 70498; 70551; 72141; 72148; 80048; 80053; 80061; 80306; 81001; 81003; 81015; 82310; 82550; 83036; 83735; 84146; 84484; 85025; 85576; 93005; 93010; 93306; 95712; 95819; 95957; 96374; 96375; J0360; J1650; J1953; J2060; J2405

== ENCOUNTER 2023-07-13 13:52 | Outpatient (CLI) | payer MEDICARE | END 2023-07-13 13:53 | disposition home or self-care (01) | LOC: ULT 13:52 | PROVIDERS: ATTEND Internal Medicine | DX: E06.3 Autoimmune thyroiditis (principal); E03.9 Hypothyroidism, unspecified; E04.2 Nontoxic multinodular goiter | CPT/HCPCS: 76536 ==